=== PATIENT | female | born 1995 | race African-American/Black ===

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

== ENCOUNTER 2020-07-17 19:13 | Emergency (ER) | payer OTHER ==
[~2020-07-17] VITALS: Ht 154.9 cm; Wt 47.6 kg
[2020-07-17 19:16] VITALS: BP 108/76
[2020-07-17 20:22] LABS: BASOPHILS % (AUTO) 1 % (0-1); EOSINOPHILS % (AUTO) 1 % (1-7); LYMPHOCYTES % (AUTO) 46 % (22-44); MEAN CORPUSCULAR HEMOGLOBIN 31.3 pg (27.0-34.8); MEAN CORPUSCULAR HGB CONC 34.3 g/dL (32.4-35.8); MEAN PLATELET VOLUME 8.5 fL (7.4-10.4); MONOCYTES % (AUTO) 9 % (2-9); NEUTROPHILS % (AUTO) 42 % (42-75); PLATELET COUNT 217 x10^3/uL (130-400); RED BLOOD COUNT 4.52 x10^6/uL (3.82-5.3); RED CELL DISTRIBUTION WIDTH 13.2 % (9.6-15.2)
[2020-07-17 20:23] LABS: MD NO
[2020-07-17 20:26] LABS: ALANINE AMINOTRANSFERASE 17 U/L (12-78); ALBUMIN 3.6 g/dL (3.4-5.0); ANION GAP 3 mmol/L (5-15); CALCIUM 8.4 mg/dL (8.5-10.1); CHLORIDE 112 mmol/L (98-107); CREATININE 0.58 mg/dL (0.55-1.02)
[2020-07-17 20:30] LABS: ALKALINE PHOSPHATASE 53 U/L (45-117); BILIRUBIN,TOTAL 0.2 mg/dL (0.2-1.0); TOTAL PROTEIN 7.6 g/dL (6.4-8.2)
== END 2020-07-17 20:51 | disposition home or self-care (01) ==
LOC: ED 19:37
DX: U07.1 COVID-19 (principal); M70.10 Bursitis, unspecified hand; R51.9 Headache, unspecified; R11.0 Nausea; R10.9 Unspecified abdominal pain
CPT/HCPCS: 36415; 71045; 80053; 84703; 85025; 99284; U0003

== ENCOUNTER 2021-01-02 16:42 | Emergency (ER) | payer OTHER ==
[~2021-01-02] VITALS: Ht 152.4 cm; Wt 44.8 kg
[2021-01-02 16:46] VITALS: BP 102/68
[2021-01-02] MEDS ORDERED: LIDOCAINE 1%-EPI 1:100K, 20ML SQ ONE (17:30)
--- NOTE | 2021-01-02 19:32 | NUR ---
PT CALLED TO ROOM FROM LOBBY
[2021-01-02] MEDS ORDERED: LIDOCAINE 1%-EPI 1:100K, 20ML ONE (19:49)
--- NOTE | 2021-01-02 19:54 | NUR ---
PROVIDER AT BEDSIDE DISCUSSING PLAN OF CARE.
--- NOTE | 2021-01-02 20:10 | NUR ---
PATIENT CLEARED FOR DISCHARGE. VERBALIZDED UNDERSTANDING OF SELF CARE AND FOLLOW UP CARE AT HOME. AMBULATORY TO DISCHARGE DESK WITHOUT COMPLICATIONS WITH BELONGINGS.
== END 2021-01-02 20:23 | disposition home or self-care (01) ==
LOC: ED 20:12
DX: K64.4 Residual hemorrhoidal skin tags (principal)
CPT/HCPCS: 99283